=== PATIENT | female | born 1985 | race Caucasian/White ===

== ENCOUNTER 2016-07-01 21:23 | Inpatient (IN) | payer BC ==
[2016-07-01 23:02] LABS: BASO % 0.1 % (0-2); EOS % 1.6 % (0-7); EOSINOPHIL ABSOLUTE COUNT 0.1 tho/cmm (0.0-0.7); HCT-HEMATOCRIT 34.1 % (34.0-49.0); HGB-HEMOGLOBIN 11.4 gm/dl (12.0-15.5); IMMATURE GRANULOCYTES ABSOLUTE 0.04 tho/cmm (0-0.03); IMMATURE GRANULOCYTES PERCENT 0.5 % (0-0.3); LYMPH % 23.8 % (20-45); MCH (MEAN CORPUSCULAR HGB) 29.2 pg (28.0-32.0); MCHC MEAN CORPUSCULAR HGB CONC 33.4 % (32.0-36.0); MCV (MEAN CELL VOLUME) 87.4 fl (82.0-96.0); MEAN PLATELET VOLUME 9.9 cmc (9.4-12.4); MONOCYTE ABSOLUTE COUNT 0.4 tho/cmm (0.0-1.2); NEUTROPHIL ABSOLUTE COUNT 5.8 tho/cmm (1.6-8.0); NEUTROPHIL-AUTOMATED 5.8 tho/cmm (1.6-8.0); PLATELET COUNT 169 tho/cmm (150-450); RED CELL DISTRIBUTION WIDTH 14.2 % (12.4-16.4); WHITE BLOOD COUNT 8.3 tho/cmm (4.0-10.0)
[2016-07-02] MEDS ORDERED: PRENA1 CHEW TA1.4 M1 PO (00:13)
[2016-07-02] MEDS ORDERED: VISTARIL25 M1 PO (00:13)
[2016-07-02] MEDS ORDERED: PROGESTERO50 MG/1 ML IM (00:14)
[2016-07-02 02:44] LABS: CORD BLOOD PH ARTERIAL 7.25 Units (7.18-7.38)
[2016-07-02 15:11] LABS: BASO % 0.1 % (0-2); HCT-HEMATOCRIT 33.6 % (34.0-49.0); LYMPH % 6.1 % (20-45); LYMPH ABSOLUTE COUNT 1.1 tho/cmm (0.8-4.5); MCH (MEAN CORPUSCULAR HGB) 29.3 pg (28.0-32.0); MCHC MEAN CORPUSCULAR HGB CONC 32.7 % (32.0-36.0); MCV (MEAN CELL VOLUME) 89.4 fl (82.0-96.0); MEAN PLATELET VOLUME 10.6 cmc (9.4-12.4); MONO % 4.9 % (0-12); MONOCYTE ABSOLUTE COUNT 0.9 tho/cmm (0.0-1.2); NEUTROPHIL ABSOLUTE COUNT 15.7 tho/cmm (1.6-8.0); NEUTROPHIL-AUTOMATED 15.7 tho/cmm (1.6-8.0); NEUTROPHILS % 88.9 % (40-80); PLATELET COUNT 239 tho/cmm (150-450); RED BLOOD COUNT 3.76 mil/cmm (4.00-5.20); RED CELL DISTRIBUTION WIDTH 14.1 % (12.4-16.4)
[2016-07-02 15:14] LABS: WHITE BLOOD COUNT 17.6 tho/cmm (4.0-10.0)
[2016-07-04] MEDS ORDERED: IBUPROFEN800 M1 PO (09:19)
[2016-07-04] MEDS ORDERED: LORTAB 5-325 M1 EAC1 PO (09:20)
== END 2016-07-04 10:30 | DRG 775 ==
LOC: LDR 21:23 → OBGD 07-02 05:10
PROVIDERS: Obstetrics & Gynecology; ADMIT Obstetrics & Gynecology
PROC: 10E0XZZ Delivery of Products of Conception, External Approach (ICD-10-PCS; principal; 2016-07-02)
DX: O60.14X0 Preterm labor third trimester with preterm delivery third trimester, not applicable or unspecified (principal); Z37.0 Single live birth; Z3A.34 34 weeks gestation of pregnancy
CPT/HCPCS: J0702; J2540; J2590; J3105; J3475